=== PATIENT | female | born 1955 | race Caucasian/White ===

== ENCOUNTER 2019-06-25 14:38 | Inpatient (IN) | payer MEDICAID, MEDICARE, OTHER ==
[~2019-06-25] VITALS: Ht 160 cm; Wt 59.4 kg
--- NOTE | 2019-06-25 14:42 | NUR ---
BIB RA 38 FROM [facility],WORSENING ABDOMINAL PAIN X 2 WEEKS,NAUSEA/VOMITING TODAY; PT TO BED 7, -SOB, NAD NOTED, VSS, PENDING MD BLACK
[2019-06-25] MEDS ORDERED: ONDANSETRON HCL/PF 4 MG/2 ML VIAL ONE (15:11)
[2019-06-25] MEDS ORDERED: LORAZEPAM INJ 2 MG/ML VIAL ONE (15:11)
[2019-06-25 15:15] LABS: CALCIUM, SERUM 8.5 mg/dL (8.5-10.1); CREATININE 0.9 mg/dL (0.6-1.3); POTASSIUM 3.9 mmol/L (3.5-5.1)
[2019-06-25 15:24] LABS: BILIRUBIN,DIRECT 0.1 mg/dL (0.0-0.2); BILIRUBIN,TOTAL 0.4 mg/dL (0.2-1.0); TOTAL PROTEIN, SERUM 7.1 g/dL (6.4-8.2)
[2019-06-25 15:25] LABS: APPEARANCE,URINE Clear (CLEAR); BILIRUBIN,URINE Negative (NEGATIVE); BLOOD, URINE Negative Ery/uL (NEGATIVE); COLOR,URINE Yellow (YELLOW); KETONES,URINE Negative (NEGATIVE); LEUKOCYTE ESTERASE ,URINE Negative (NEGATIVE); NITRITE, URINE Negative (NEGATIVE); PH,URINE 7.5 (5.0-8.0); PROTEIN,URINE Negative (NEGATIVE); UGLUCOSE Negative (NEGATIVE); UROBILINOGEN,URINE 0.2 EU/dL (0.2)
[2019-06-25 15:30] LABS: BASOPHILS % (AUTO) 0.6 % (0.0-2.0); EOSINOPHILS % (AUTO) 0.1 % (0.0-6.0); HEMATOCRIT 25 % (33-45); HEMOGLOBIN 7.8 g/dL (11.5-14.8); LYMPHOCYTES # (AUTO) 0.5 /CMM (0.8-4.8); LYMPHOCYTES % (AUTO) 8.3 % (20.0-44.0); MEAN CORPUSCULAR HGB CONC 31 g/dl (31.0-36.0); MEAN CORPUSCULAR VOLUME 64 fL (82-100); MONOCYTES # (AUTO) 0.7 /CMM (0.1-1.30); MONOCYTES % (AUTO) 9.9 % (2.0-12.0); NEUTROPHILS # (AUTO) 5.3 /CMM (1.8-8.9); NEUTROPHILS % (AUTO) 81.1 % (43.0-81.0); PLATELET COUNT (AUTO) 317 /CMM (150-450); RED BLOOD CELL COUNT(AUTO) 3.96 MIL/uL (4.0-5.2); WHITE BLOOD COUNT (AUTO) 6.6 K/uL (4.3-11.0)
[2019-06-25] MEDS ORDERED: LORAZEPAM INJ 2 MG/ML VIAL IV ONE (15:30)
[2019-06-25] MEDS ORDERED: ONDANSETRON HCL/PF - ER 4 MG/2 ML VIAL IV ONE (15:30)
[2019-06-25] MEDS ORDERED: HYDR12.55 PO (15:34)
[2019-06-25] MEDS ORDERED: BUSP10TA3 PO (15:34)
[2019-06-25] MEDS ORDERED: LISI-607 PO (15:34)
[2019-06-25] MEDS ORDERED: QUET25TA PO (15:34)
[2019-06-25] MEDS ORDERED: FERR325T23 PO (15:34)
[2019-06-25] MEDS ORDERED: OMEP20CA15 PO (15:34)
[2019-06-25] MEDS ORDERED: DOCU100C36 PO (15:34)
[2019-06-25] MEDS ORDERED: SENN-261 PO (15:34)
[2019-06-25] MEDS ORDERED: FLUV100T3 PO (15:34)
--- NOTE | 2019-06-25 15:47 | NUR ---
GAVE MOVESHEET TO ADMITTING
--- NOTE | 2019-06-25 15:57 | NUR ---
Frank savage in [facility] - 06/25/19 at 1600 by LINUS ETA 1630 TRIP#[id number]
--- NOTE | 2019-06-25 17:26 | NUR ---
TRANSFER INFO: AWAITING ROOM ASSIGNMENT AT [facility]
--- NOTE | 2019-06-25 18:59 | NUR ---
AWAITING CALL FROM MOLD PREPARER IVETH
--- NOTE | 2019-06-25 19:20 | NUR ---
PER CM IVETH bed available at 2000 hours
--- NOTE | 2019-06-25 21:39 | NUR ---
RECEIVED VERBAL AUTH FROM ADMITTING REGARDING OK TO ADMIT PT HERE.
--- NOTE | 2019-06-25 21:52 | NUR ---
CALLED [facility], PAGED DR WAGONER
--- NOTE | 2019-06-25 21:55 | NUR ---
CALLED NURSING SUP FOR BED
--- NOTE | 2019-06-25 22:07 | NUR ---
327-[address] [facility]
--- NOTE | 2019-06-25 22:26 | NUR ---
report given to herson sales for matilde pt will be transpoerted to 3rd floor
[2019-06-25 22:35] VITALS: BP 153/59
[2019-06-25 22:40] VITALS: BP 153/59
--- NOTE | 2019-06-25 22:45 | NUR ---
MS MACHINE JOINER CEMENTER NOTES PATIENT TRANSFERRED FROM ER VIA [facility] AT 2235 IN STABLE CONDITION. ABLE TO AMBULATE TO BED; STEADY GAIT. A/OX3. ON ROOM AIR. NO S/S OF ACUTE RESPIRATORY DISTRESS. PATIENT HAS MULTIPLE COMPLAINTS; "MY HEAD HURTS, MY TONGUE HEARTS, MY LEG HURTS, I'M ANXIOUS, I NEED MEDICINE FOR SLEEP". PATIENT RATES GENERALIZED PAIN 8/10. EXPLAINED TO PATIENT THAT SHE CANNOT DRINK WATER AT THIS TIME; PATIENT VERBALIZED UNDERSTANDING. MULTIPLE SCABS PRESENT ON UPPER BACK UPON SKIN ASSESSMENT; PHOTOS TAKEN AND PLACED IN CHART. MED RECON AND MRSA SWAB COMPLETED IN ER. BELONGINGS LIST REVIEWED WITH PATIENT AND PLACED IN CHART.NO ADMITTING ORDERS AT THIS TIME. HOME AIDE MD, DR. GONZALEZ, MADE AWARE OF NEW ADMISSION. CURRENTLY AWAITING ORDERS. SAFETY MEASURES IN PLACE. BED LOCKED, SIDE RAILS X2, CALL LIGHT WITHIN. WILL CONTINUE TO MONITOR.
[2019-06-26] MEDS ORDERED: MAGNESIUM HYDROXIDE 30 ML UDC PO PRN (00:30)
[2019-06-26] MEDS ORDERED: ACETAMINOPHEN 325 MG TABLET PO PRN (00:30)
[2019-06-26] MEDS ORDERED: MAG HYDROX/AL HYDROX/SIMETH 30 ML UDC PO PRN (00:30)
[2019-06-26] MEDS ORDERED: ZOLPIDEM TARTRATE 5 MG TABLET PO PRN (00:30)
[2019-06-26] MEDS: ONDANSETRON HCL/PF 4 MG/2 ML VIAL IVP PRN ×2 (01:12→07:12)
--- NOTE | 2019-06-26 01:30 | NUR ---
MS RN NOTES PATIENT C/O OF ANXIETY. NOTIFIED DESK ASSISTANT LISA VO. AWAITING ORDERS.
[2019-06-26] MEDS: HYDROCODONE/APAP 5/325MG 1 EACH TABLET PO PRN ×3 (01:35→12:44)
[2019-06-26 06:50] LABS: CALCIUM, SERUM 8.8 mg/dL (8.5-10.1); CREATININE 0.8 mg/dL (0.6-1.3); POTASSIUM 3.8 mmol/L (3.5-5.1)
[2019-06-26 06:55] LABS: IRON, SERUM 14 ug/dl (50-175); TOTAL IRON BINDING CAPACITY 468 ug/dl (250-450)
[2019-06-26] MEDS ORDERED: PANTOPRAZOLE 40 MG TABLET.DR PO SCH (07:30)
--- NOTE | 2019-06-26 07:30 | NUR ---
RN MS NOTES PT AWAKE, ALERT AND VERBALLY RESPONSIVE, ANXIOUS AND KEPT FOLLOWING NURSE, EXPLAINED TO PT THAT SHE NEEDS TO BE IN HER ROOM, PT WILL RETURN TO HER ROOM BUT WILL GET UP AGAIN AND WALK, DENIES PAIN, NOT IN DISTRESS, REORIENTATION DONE, SAFETY PRECAUTIONS OBSERVED.
--- NOTE | 2019-06-26 07:49 | NUR ---
MS RN CLOSING NOTES PATIENT AWAKE AND PACING HALLWAY/BEDROOM. A/O X3. ON ROOM AIR. NO S/S OF ACUTE RESPIRATORY DISTRESS. PATIENT C/O OF ANXIETY. IV ON LEFT AC, SIZE 20 REMAINS INTACT & PATENT, HEP LOCKED. SAFETY MEASURES IN PLACE. BED LOCKED, SIDE RAILS X2, CALL LIGHT WITHIN REACH. WILL ENDORSE TO DAY SHIFT NURSE PLAN OF CARE.
[2019-06-26 08:00] VITALS: BP 163/126
[2019-06-26] MEDS: QUETIAPINE FUMARATE 25 MG TABLET PO SCH ×2 (08:53→16:30)
[2019-06-26] MEDS: busPIRone 5 MG TABLET PO SCH ×2 (08:53→16:30)
[2019-06-26] MEDS: DOCUSATE SODIUM 100 MG CAPSULE PO SCH ×2 (08:53→16:29)
[2019-06-26] MEDS ORDERED: FERROUS SULFATE (325 MG) 325 MG/TAB TABLET PO SCH (09:00)
[2019-06-26] MEDS ORDERED: LISINOPRIL (5MG) 5 MG TABLET PO SCH (09:00)
--- NOTE | 2019-06-26 09:01 | NUR ---
WOUND CARE CONSULT: PT NOT SEEN FOR SKIN ASSESSMENT DUE TO NO NEED PER GREENSKEEPER LABORER. ADMISSION PHOTOS SHOW DRY SCABS TO UPPER BACK AREA, PRESENT ON ADMISSION. CURRENT ORTIZ SCORE IS 20. WILL SEE PRN.
--- NOTE | 2019-06-26 09:06 | NUR ---
[facility] MAINTENANCE [employer]OP WELDER PHONE# [phone] FAX [phone]
[2019-06-26] MEDS ORDERED: LORAZEPAM 1 MG TABLET PO ONE (09:30)
--- NOTE | 2019-06-26 10:06 | NUR ---
CARE PROCESS MANAGER was informed by ANTONI Griffith that pt was sent to [facility] ED from [facility]. CARE PROCESS MANAGER contacted Henrique to inquire if pt can go back to [facility]. Per Henrique, they will have a bed for the pt and to fax clinicals. Clinicals faxed to [facility] intake dept.
--- NOTE | 2019-06-26 10:24 | NUR ---
RN MS NOTES RECEIVED ORDER FROM DR. ANUPAM NAIK ATIVAN PO ONETIME, NOTED AND CARRIED OUT, PT RESTING IN BED, NO SIGN OF PAIN OR DISTRESS.
[2019-06-26] MEDS ORDERED: QUETIAPINE FUMARATE 25 MG TABLET PO PRN (14:30)
--- NOTE | 2019-06-26 14:44 | NUR ---
ASSOCIATE PROFESSOR OF ENGLISH contacted pt's son Tutu Alfonso for information regarding the pt. Per Tutu, pt resides with him at [address], [address] in [place], [place] [id number] . Tutu, stated his mom had informed him that she was going to be at [facility] until Monday. ASSOCIATE PROFESSOR OF ENGLISH informed him that pt was sent from [facility] to [facility] for Hyponatremia. Tutu informed ASSOCIATE PROFESSOR OF ENGLISH, pt has a diagnosis of Depression and sever Anxiety. Pt currently takes Buspar, Zyprexa, Zoloft and Seroquel. Tutu is unable to case picker the pt from [facility] due to not having transportation. Pt will require transportation back home when medically and psychiatrically cleared. [facility] updated community case manager Marie with aforementioned information.
[2019-06-26 16:00] VITALS: BP 136/97
--- NOTE | 2019-06-26 18:07 | NUR ---
RN MS NOTES PT IN BED, RESTING, STILL WITH EPISODES OF BEING NEEDY, REDIRECTABLE BEHAVIOR, PM MEDS GIVEN, COMPLIANT WITH MEDS, DENIES PAIN OR ANY DISCOMFORT, RESPIRATIONS NORMAL, ATE HER DINNER, CONSUMED 70% OF HER HEAL, AMBULATES TO THE BATHROOM WITH SLOW AND STEADY GAIT, RECEIVED DISCHARGE ORDER FROM DR. BO, PT TO TRANSFER TO [facility], PT INFORMED, DISCHARGE AND MEDICATION INSTRUCTIONS PROVIDED TO PT, VERBALIZED UNDERSTANDING, PT SIGNED DISCHARGE AND TRANSFER PAPERS, BELONGINGS ACCOUNTED FOR, ROOPA CONNORS INFORMED OF THE TRANSFER BY YARN TESTER, REPORT GIVEN TO RAE PETERSON, ADMITTING NURSE AT [facility], AWAITING AMBULANCE STAFF DEVELOPMENT MANAGER, ETA 1830.
--- NOTE | 2019-06-26 19:45 | NUR ---
MS RN NOTES PATIENT RECEIVED, ALERT AND ORIENTED X 3. PATIENT ANXIOUS IN BED, PROVIDED COMFORT MEASURES AND TRY TO CALM PATIENT DOWN. PATIENT ON ROOM AIR WITH NO SIGNS OF RESPIRATORY DISTRESS, WITH EVEN NON LABORED BREATHING. PATIENT AMBULATED TO THE RESTROOM WITH A SLOW AND STEADY GAIT. PATIENT IV ACCESS IN PLACE AND INTACT. SAFETY PRECAUTIONS IMPLEMENTED WITH THE BED IN THE LOWEST POSITION, BILATERAL SIDE RAILS UP, BED LOCKED, AND CALL LIGHT WITHIN EASY REACH OF THE PATIENT. WILL CONTINUE TO MONITOR PATIENT.
--- NOTE | 2019-06-26 20:30 | NUR ---
MS RN NOTES PATIENT DISCHARGED AND LEFT UNIT VIA [facility]. PATIENT'S VITAL SIGNS STABLE. BLOOD PRESSURE 124/109, PULSE 86, RESPIRATORY RATE 20 TEMPERATURE, 98.7, AND SPO2 99%. REMOVED ID BAND, IV ACCESS REMOVED, AND BELONGINGS WITH THE PATIENT.
[2019-06-26 20:43] VITALS: BP 124/109
[2019-06-26] MEDS ORDERED: SENNOSIDES 8.6 MG TABLET PO SCH (22:00)
== END 2019-06-26 20:30 | disposition short-term general hospital (02) | DRG 426 ==
LOC: ER 14:40 → MED 22:08
PROVIDERS: ADMIT Nurse Practitioner Acute Care; ATTEND Nurse Practitioner Acute Care
DX: E87.1 Hypo-osmolality and hyponatremia (principal); D50.9 Iron deficiency anemia, unspecified; F41.9 Anxiety disorder, unspecified; I10 Essential (primary) hypertension; R63.1 Polydipsia; Z87.440 Personal history of urinary (tract) infections; T50.2X5A Adverse effect of carbonic-anhydrase inhibitors, benzothiadiazides and other diuretics, initial encounter; Y92.89 Other specified places as the place of occurrence of the external cause; F29 Unspecified psychosis not due to a substance or known physiological condition; F32.9 Major depressive disorder, single episode, unspecified; K21.9 Gastro-esophageal reflux disease without esophagitis
CPT/HCPCS: 36415; 80048-TC; 80076-TC; 81000-TC; 82570-TC; 83540-TC; 83690-TC; 84300-TC; 85025-TC; 87081-TC; G0378; J2060; J2405